=== PATIENT | male | born 1965 | race Caucasian/White ===

== ENCOUNTER 2024-06-20 08:35 | Emergency (ER) | payer MEDICAID ==
[2024-06-20] MEDS ORDERED: Azithromycin 500 MG in Sodium Chloride 0.9% 150 ML IV ONE (09:15)
[2024-06-20 09:29] LABS: HEMATOCRIT 46.5 % (38.4-49.7); MEAN CORPUSCULAR HEMOGLOBIN 31.6 pg (31.6-35.5); MEAN CORPUSCULAR HGB CONC 34.4 g/dL (31.6-35.5); MEAN CORPUSCULAR VOLUME 91.9 fL (81.4-99.0); PLATELET COUNT,PLT 141 K/uL (130-375); RED BLOOD CELL COUNT 5.06 M/uL (4.14-5.76); WHITE BLOOD CELL COUNT,WBC 10.7 K/uL (3.2-11.0)
[2024-06-20 09:30] LABS: BASE EXCESS VENOUS 1.2 mm/L; METHEMOGLOBIN 0.8 %; O2 SATURATION VENOUS 48.4; PCO2 VENOUS 34.4 mm/Hg; PH,VENOUS 7.457 (7.350-7.450); TOTAL HEMOGLOBIN 16.9 g/dL (13.5-18.0)
[2024-06-20 09:32] LABS: PO2 VENOUS 26.9 mm/Hg
[2024-06-20] MEDS: Sodium Chloride 0.9% 1,000 ML IV ONE ×2 (09:39→10:54)
[2024-06-20] MEDS: Azithromycin 500 MG in Sodium Chloride 0.9% 250 ML IV ONE (09:39)
[2024-06-20 09:42] LABS: APPEARANCE,URINE CLEAR (CLEAR); BILIRUBIN,URINE SMALL (NEGATIVE); COLOR,URINE ORANGE (YELLOW); GLUCOSE,URINE NEGATIVE (NEGATIVE); KETONES,URINE NEGATIVE (NEGATIVE); LEUKOCYTE ESTERASE,URINE NEGATIVE (NEGATIVE); NITRITE,URINE NEGATIVE (NEGATIVE); OCCULT BLOOD,URINE TRACE-INTACT (NEGATIVE); PH,URINE 5.5 (5.0-8.0); PROTEIN,URINE 100 mg/dL (NEGATIVE)
[2024-06-20 09:47] LABS: BAND ABSOLUTE MAN 1.07 K/uL; BAND PERCENT MAN 10 % (5-11); LYMPHOCYTES ABSOLUTE MAN 0.96 K/uL (0.8-3.3); LYMPHOCYTES PERCENT MAN 9 % (24-44); MONOCYTES ABSOLUTE MAN 0.43 K/uL (0.20-0.90); MONOCYTES PERCENT MAN 4 % (2-6); NEUTROPHILS ABSOLUTE MAN 8.24 K/uL (1.0-7.6); SEG NEUTROPHILS PERCENT MAN 77 % (36-66)
[2024-06-20 09:52] LABS: A/G RATIO 0.9 (1.2-2.2); ALANINE AMINOTRANSFERASE,ALT 42 U/L (12-78); ALBUMIN 3.6 g/dL (3.4-5.0); ALKALINE PHOSPHATASE 76 U/L (46-116); ASPARTATE AMNIOTRANSFERASE,AST 15 U/L (15-37); BILIRUBIN TOTAL 1.2 mg/dL (0.2-1.0); BLOOD UREA NITROGEN,BUN 26 mg/dL (7-18); CALCIUM 9.1 mg/dL (8.5-10.1); CARBON DIOXIDE,CO2 23 mmol/L (21-32); CHLORIDE,CL 99 mmol/L (100-108); CREATININE 1.2 mg/dL (0.8-1.3); EST CRCL DRUG DOSING (CG) 69.72 mL/min; ESTIMATED GFR 69 mL/min (>60); GLUCOSE RANDOM 160 mg/dL (74-106); POTASSIUM,K 3.8 mmol/L (3.6-5.2); PROTEIN TOTAL,TP 7.6 g/dL (6.4-8.2); SODIUM,NA 138 mmol/L (140-148)
[2024-06-20 10:01] LABS: ANION GAP 19.8 mmol/L (5.0-14.0); C-REACTIVE PROTEIN 21.73 mg/dL (<0.50); TROPONIN I HIGH SENSITIVITY 5.9 pg/mL (<=60.3)
[2024-06-20 10:06] LABS: AMORPHOUS SEDIMENT,URINE MODERATE; BACTERIA,URINE RARE; EPITHELIAL CELLS,URINE RARE; MUCUS,URINE MODERATE; RBC,URINE 0-5 (0-5); WBC,URINE NOT SEEN (0-5)
[2024-06-20] MEDS ORDERED: Sodium Chloride 0.9% 10 ML Syringe FLUSH ONE (10:48)
[2024-06-20] MEDS: Acetaminophen 500 MG Tab PO ONE (10:54)
[2024-06-20] MEDS ORDERED: Sodium Chloride 0.9% 100 ML IV SCH (11:00)
[2024-06-20] MEDS ORDERED: Iopamidol 755 Mg/ML 100 ML Bottle IV SCH (11:00)
== END 2024-06-20 12:13 | disposition home or self-care (01) ==
LOC: JP.ED 08:35
DX: J18.9 Pneumonia, unspecified organism (principal); I10 Essential (primary) hypertension; F17.200 Nicotine dependence, unspecified, uncomplicated; Z86.16 Personal history of COVID-19; Z79.899 Other long term (current) drug therapy
CPT/HCPCS: 36415; 71046; 71275; 80053; 81001; 82803; 83605; 83880; 84484; 85025; 85379; 86140; 87040; 87426; 93005; 96361; 96365; 99284; A9270; J0456; J7030; J7050

== ENCOUNTER 2024-11-16 09:07 | Day surgery (SDC) | payer MEDICAID ==
[2024-11-16] MEDS: Lactated Ringers 1,000 ML IV SCH (10:05)
[2024-11-16] MEDS ORDERED: Propofol 200 MG/20 ML SDV ONE (10:14)
[2024-11-16] MEDS ORDERED: Midazolam 1 MG/ML 2 ML SDV ONE (10:14)
[2024-11-16] MEDS ORDERED: fentaNYL 50 MCG/ML SDV ONE (10:14)
== END 2024-11-16 12:25 | disposition home or self-care (01) ==
LOC: JP.SDS 09:07
PROVIDERS: ATTEND Surgery
DX: Z12.11 Encounter for screening for malignant neoplasm of colon (principal); K63.5 Polyp of colon; K62.1 Rectal polyp; K57.30 Diverticulosis of large intestine without perforation or abscess without bleeding; I10 Essential (primary) hypertension; F17.210 Nicotine dependence, cigarettes, uncomplicated; Z79.899 Other long term (current) drug therapy
CPT/HCPCS: 45380; J2250; J2704; J3010; J7120; 00811-QZ